=== PATIENT | male | born 1960 | race African-American/Black ===

== ENCOUNTER 2017-02-09 10:18 | Outpatient (CLI) | payer OTHER ==
[2017-02-09 12:10] LABS: #Basophils 0.1 thou/uL (0.0-0.2); #Eosinphils 0.1 thou/uL (0.0-0.7); #Lymphocytes 1.2 thou/uL (1.20-3.40); #Monocytes 0.6 thou/uL (0.11-0.59); %Basophils 1.9 % (0.0-1.0); %Eosinophils 2.3 % (0.0-10.0); %Lymphocytes 30.3 % (21.0-51.0); %Monocytes 14.7 % (0.0-10.0); Hematocrit 43.7 % (42.0-52.0); Mean Platelet Volume 8.3 fL (7.4-10.4); Red Blood Cell (RBC) Count 4.56 mill/uL (4.70-6.10)
--- NOTE | 2017-02-09 12:12 | CT ---
CT OF THE RIGHT INDEX DIGIT: Date: 02/09/17 PROVIDED CLINICAL HISTORY: Proximal phalanx fracture. FINDINGS: Comparison is made with prior radiographs. There is a transversely oriented fracture of the index digit proximal phalanx at the junction of the middle and distal thirds. There is dorsal displacement of the distal fracture fragment by one gretchen x width. There is mild comminution of the fracture fragments. There is minimal periosteal reaction s een about the fracture margins. There is no bridging callus formation evident. Hardware tracks are n oted within the proximal phalanx related to prior pinning. There is increased density within the sof t tissues surrounding the index digit, which is nonspecific but could reflect edema or infection. Gr eater than physiologic tenosynovial fluid cannot be excluded involving the index digit extensor and flexor tendons. A second MCP joint effusion may be present. IMPRESSION: 1. Ununited index digit proximal phalangeal fracture as described above. 2. Soft tissue changes involving the index digit as described above. Please correlate with concerns for infection. POS: MARYCARMEN
== END 2017-02-09 10:19 | disposition home or self-care (01) ==
LOC: CT 10:18
PROVIDERS: ATTEND Orthopaedic Surgery Hand Surgery
DX: Z01.812 Encounter for preprocedural laboratory examination (principal); S62.610 Displaced fracture of proximal phalanx of right index finger
CPT/HCPCS: 85025; 85652

== ENCOUNTER 2017-02-14 10:08 | Inpatient (IN) | payer OTHER ==
[2017-02-14] MEDS ORDERED: Vancomycin HCl 1.5 GM in Sodium Chloride 0.9% 250 ML 300 ML IVPB SCH (11:00)
[2017-02-14] MEDS ORDERED: Fentanyl 100 MCG/2 ML VIAL ONE ×3 (12:08→15:56)
[2017-02-14] MEDS ORDERED: Midazolam HCl 2 mg/2 ml Vial ONE (12:08)
[2017-02-14] MEDS ORDERED: Propofol 200 MG/20 ML VIAL ONE (12:31)
[2017-02-14] MEDS ORDERED: Ondansetron HCl/PF 4 MG/2 ML Vial ONE (12:31)
[2017-02-14] MEDS ORDERED: Lidocaine 1% PF 5 ML VIAL ONE (12:31)
[2017-02-14] MEDS ORDERED: Ketorolac Tromethamine 30 MG/ML VIAL ONE (12:31)
[2017-02-14] MEDS ORDERED: Dexamethasone 20 MG/5 ML VIAL ONE (12:31)
[2017-02-14] MEDS ORDERED: Bacitracin Zinc Ointment 30 gm TUBE ONE (12:48)
[2017-02-14] MEDS ORDERED: Bupivacaine PF 0.5% 30 ML VIAL ONE (12:48)
[2017-02-14] MEDS ORDERED: Tobramycin Sulfate 1.2 GM VIAL ONE (13:17)
[2017-02-14] MEDS ORDERED: Meperidine HCl/PF 25 MG/ML VIAL SLOW IVP PRN (14:24)
[2017-02-14] MEDS ORDERED: Morphine Sulfate 2 MG/ML SYRINGE SLOW IVP PRN (14:24)
[2017-02-14] MEDS ORDERED: HYDROmorphone 2 MG/ML VIAL SLOW IVP PRN (14:24)
[2017-02-14] MEDS ORDERED: Promethazine HCl 25 MG/ML VIAL SLOW IVP PRN (14:24)
[2017-02-14] MEDS ORDERED: Morphine 2 MG/ML SYRINGE SLOW IVP PRN (14:56)
[2017-02-14] MEDS ORDERED: Ondansetron ODT 4 MG TAB PO PRN (14:56)
[2017-02-14] MEDS ORDERED: traMADol HCl 50 MG TAB PO PRN (14:56)
[2017-02-14] MEDS ORDERED: Acetaminophen 325 MG TAB PO PRN (14:56)
--- NOTE | 2017-02-14 15:47 | RAD ---
THREE VIEWS FROM FLUOROSCOPIC IMAGES OF THE RIGHT INDEX FINGER 02/14/17 FLUOROSCOPIC TIME: 26.7 seconds TOTAL EXPOSURE: 0.47 mGy. FINDINGS: Since comparison exam dated 12/04/06, there has been removal of the smooth Silvia wires transfixin g an index finger proximal phalangeal fracture. The fracture lucency persists. There is increased o steolysis seen involving the inner cortical margin of the mid proximal aspect of the index finger p roximal phalanx as well as the central medullary cavity. Subsequent images demonstrate curettage of the proximal phalanx and placement of antibiotic beads within the fracture site and curettage site o f the index finger proximal phalanx. There is some diastasis of the transverse fracture of the index finger proximal phalangeal neck. IMPRESSION: Interval bone curettage of the right index finger proximal phalangeal fracture. POS: MARYCARMEN
[2017-02-14 17:27] VITALS: BMI 28.2
[2017-02-14] MEDS ORDERED: Heparin 1,000 UNITS/ML VIAL ONE (17:29)
[2017-02-14] MEDS: Ketorolac Tromethamine 30 MG/ML VIAL IVP SCH ×2 (17:58→23:37)
[2017-02-14] MEDS: Dextrose 5 %-0.45 % NaCl 1,000 ML IV SCH (18:07)
[2017-02-14] MEDS: Vancomycin HCl 1 GM in Premix Bag 1 BAG IVPB SCH (20:11)
[2017-02-14] MEDS: Famotidine 20 MG TAB PO SCH (20:11)
[2017-02-15] MEDS: Ketorolac Tromethamine 30 MG/ML VIAL IVP SCH ×3 (05:27→17:06)
--- NOTE | 2017-02-15 06:42 | OP ---
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 PROCEDURE PERFORMED: 1. Debridement of bone intramedullary. 2. Bone cortex excision for osteomyelitis. 3. Tenolysis extensor tendon, proximal phalanx. 4. Application of antibiotic beads, intramedullary. 5. Open treatment of nonunion, proximal phalanx. INDICATIONS: The patient is now approximately 4 weeks after open treatment for grade 2 open fractur e secondary to industrial accident with Workman's Compensation status. He initially had K-wires han sherry, but they were removed or dislodged at home in association with the patient's activity and he co mplained of drainage from 1 pin site when radiographs revealed possible lysis, it was clearly need t o have this debrided, treated like a real infection with osteomyelitis with a filling of space with antibiotic beads and removal of all necrotic tissue. ESTIMATED BLOOD LOSS: 10 mL TOURNIQUET TIME: 67 minutes. DESCRIPTION OF PROCEDURE: After successful general LMA technique, the limb was prepped and draped. Timeout was done appropriately. A big C-arm was brought into the field confirmed with the position and the overlap without healing. The limb was exsanguinated and tourniquet inflated to 250 mmHg pressure and for the distal one half of the incision, his previous incision was removed, which had transverse limb just distal to the fra cture, but proximally, it was a dorsally-based procedure. This was carried through the skin, subcutaneous tissue and used the entire incision which went 1 cm distal to the mid proximal phalangeal joint . There was some mucopurulence in the area where t he pin had penetrated the ulnar, distal, proximal phalanx cortex. For this reason, we first sent a specimen of the subcutaneous tissue looked mucopurulent, extensor mechanism did the same thing for t he thickened periosteum that was adherent to the extensor tendon while we performed formal tenolysis and then we explored the fracture by removing minimal callus and with mild gross motion of the fra cture seen, debrided this along with some of the bone cortex in the intramedullary canal with curett es, a , and a [place] blade and then we were able to visualize the minimal necrosis left in intr amedullary canal. The subcutaneous tissue support was not damaged or involved in this process at al l. We then realized that the patient had osteomyelitis. Therefore, a specimen of the following was sen t: A. Subcutaneous adhesion tissue to the tendon. B. Periosteum. C. Bone for both culture and specimen from the wound. The patient then had the bones unreduced and at that point, received almost 30% displacement dorsall y. We cleaned the fracture site and debrided it, removing all excrement or possible infectious tiss ue. We did the same thing with the other associated areas and once this was done, we could clearly i rrigate the canal which was now clean of all marrow and bone fragments. This was done with 3 liters Pulsavac with antibiotics inside until the canal was clean. We then brought vancomycin powder lucretia g with cement particles mixed, and when it was a consistency, formed it to fill the intramedullary c anal. The patient then had the irrigation completed, antibiotic beads spacer fit well, with several spacers placed in the proximal radial part of the cortex where the pin injury took place and this g ave excellent construct. Tourniquet was deflated. Hemostasis obtained after the finger became pink . We placed some small beads on top of the area and then from there we closed extensor mechanism wi th a loosely applied Prolene, but the antibiotic spacer was on both sides of the fracture in the int ramedullary canal seen on radiographs. Then, we closed the skin except for the area where the mucop urulence was seen, which was a 1 cm area using the loosely approximated 5-0 nylon. Bulky dressing w ith splint was applied. He left the operating room without complication.
[2017-02-15] MEDS: Dextrose 5 %-0.45 % NaCl 1,000 ML IV SCH ×2 (07:21→23:34)
[2017-02-15] MEDS: Vancomycin HCl 1 GM in Premix Bag 1 BAG IVPB SCH ×2 (07:56→20:05)
[2017-02-15] MEDS: Famotidine 20 MG TAB PO SCH ×2 (11:00→20:05)
[2017-02-15] MEDS: HYDROcodone/Acetaminophen 7.5/325 mg Tablet PO PRN (23:31)
[2017-02-16 06:27] LABS: #Basophils 0.1 thou/uL (0.0-0.2); #Eosinphils 0.1 thou/uL (0.0-0.7); #Monocytes 0.6 thou/uL (0.11-0.59); #Neutrophils 2.7 thou/uL (1.40-6.50); %Monocytes 11.3 % (0.0-10.0); Hematocrit 39.8 % (42.0-52.0); Mean Platelet Volume 8.2 fL (7.4-10.4); Red Blood Cell (RBC) Count 4.22 mill/uL (4.70-6.10); White Blood Cell (WBC) Count 5.5 thou/uL (4.8-10.8)
[2017-02-16 06:29] LABS: Prothrombin Time 14.7 SEC (12.0-14.7)
[2017-02-16] MEDS: Famotidine 20 MG TAB PO SCH ×2 (08:09→20:47)
[2017-02-16] MEDS: Vancomycin HCl 1 GM in Premix Bag 1 BAG IVPB SCH ×2 (08:09→20:47)
[2017-02-16] MEDS: Dextrose 5 %-0.45 % NaCl 1,000 ML IV SCH (14:31)
--- NOTE | 2017-02-16 15:38 | SPC ---
PICC PLACEMENT ULTRASOUND GUIDED VENOUS ACCESS: (Peripherally Inserted Central Catheter) HISTORY: 56-year-old male with osteomyelitis of the right hand requiring long-term IV antibiotics. TECHNIQUE: Catheter caliber: 5 [place] Catheter trim length: 44 cm Catheter lumen number: Single Catheter tip location: Superior vena cava/right atrial junction. Vein accessed: Left basilic Signed, informed consent was obtained. A tourniquet was applied at the proximal aspect of the arm. The arm was prepared and draped in the usual sterile fashion. A 25 gauge needle was used to apply buffered lidocaine superficially. The vein was punctured with a 21 gauge micropuncture needle under ultrasound guidance. A 0.018 inch guide wire was advanced through the micropuncture needle and int o the vein. Under fluoroscopic guidance, the guide wire was advanced to the right atrium. The PICC (peripherally inserted central catheter) was flushed and trimmed to the appropriate length. The sk in puncture hole was widened with a blade. The micropuncture needle was exchanged over the guide wi re for a 5 [place]ian peel-away dilator sheath. The dilator was exchanged over the guide wire for the P ICC, which was then further advanced under fluoroscopy. The sheath and guide wire were removed. Th e PICC was flushed again and secured in place at the arm. The patient tolerated the procedure well. There was no complication. IMPRESSION: Successful placement of PICC (peripherally inserted central catheter) sharlene POS: MARYCARMEN
[2017-02-16] MEDS: HYDROcodone/Acetaminophen 7.5/325 mg Tablet PO PRN ×2 (17:53→22:28)
[2017-02-16 19:41] LABS: Vancomycin, Trough 9.5 ug/mL
--- NOTE | 2017-02-16 22:23 | CON ---
DATE OF CONSULTATION: 02/16/2017 REASON FOR CONSULTATION: Osteomyelitis, right hand. HISTORY OF PRESENT ILLNESS: A 66-year-old who has no past medical history and sustained an amputation of finger right hand at work and first surgical intervention was 12/01 and consisted of debridement of an open fracture of the proximal phalanx of index finger, debridement of open joint percutaneous fixation, proximal phalanx fracture and volar plate repair, ulnar digital artery repair and ulnar digital nerve repair. The second procedure was in the following day with debridement of wound. Third procedure was a skin graft from the antecubital fossa and more debridement and now he has been readmitted with an infection in the digit. The patient underwent debridement of intramedullary bone with bone cortex excision, tenolysis extensor tendon, and application of the antibiotic beads and cultures are pending at this time. Patient other than moderate pain denies headaches, visual symptoms, sore throat, odynophagia, dysphagia, no cough or sputum production or chest pain, no abdominal pain or diarrhea, no genitourinary symptoms, no other osteomuscular issues. PAST MEDICAL HISTORY: Negative. SOCIAL HISTORY: Former smoker. 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 Two children. FAMILY HISTORY: Noncontributory. PAST SURGICAL HISTORY: No prior surgical history other than the above procedures. ALLERGIES: None. CURRENT MEDICATIONS: Vancomycin and p.r.n. meds. PHYSICAL EXAMINATION: VITAL SIGNS: T-max 98.4, blood pressure 130/79, pulse 75, respirations 18 to 20 , O2 sat 96% to 98%. GENERAL: Appears in no distress. HEENT: Noncontributory. NECK: Supple, no jugular venous distention. LUNGS: Clear. HEART: S1, S2, regular rate. ABDOMEN: Soft, not distended, vascular supply to right hand appears intact. LOWER EXTREMITIES: Normal. NEUROLOGIC: Nonfocal. LABORATORY DATA: White cell count 5.5, hemoglobin 12.8, platelets 194. INR 1.1. Previous chemistries, creatinine 0.85, globulin 4.0. ASSESSMENT: Finger fracture status post extensive procedures with postoperative infection of fracture site. The patient has a PICC line inserted and we still have pending microbiology samples. The plan is for broad spectrum coverage and may want to be released tomorrow which will be difficult in view of his worker's comp insurance which usually impose a delay in discharge planning due to their procedures for approval of treatments, also ideally one would like to have a better definition of microbiology before discharge planning. MTDD
[2017-02-17] MEDS: Dextrose 5 %-0.45 % NaCl 1,000 ML IV SCH (06:43)
[2017-02-17 07:33] VITALS: BP 144/86; TEMP 98
[2017-02-17] MEDS: Vancomycin HCl 1 GM in Premix Bag 1 BAG IVPB SCH (08:22)
[2017-02-17] MEDS: Famotidine 20 MG TAB PO SCH (08:22)
--- NOTE | 2017-02-17 09:45 | DIS ---
DATE OF ADMISSION: 02/14/2017 DATE OF DISCHARGE: 02/17/2017 ADMISSION DIAGNOSES: Possible osteomyelitis with early nonunion at right index finger, proximal pha lanx previous grade III open fracture. POSTOPERATIVE DIAGNOSES: Possible osteomyelitis with early nonunion at right index finger, proximal phalanx previous grade III open fracture. 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 CONSULTATION: 1. Discharge plan. 2. Infectious Disease. 3. Laboratory/pathology team. HOSPITAL COURSE: Patient was admitted after complaints of mucopurulent drainage from his previous p in tract sites, how he self removed his pins, the fact that all radiographs did not appear to , so we did obtain a scan which was consistent with nonunion. Because of nonunion, pain, possible dr akins, felt that he might have an infection either in his previous pin tracks or in the fracture li ne itself. He therefore on 02/14/2017 underwent a tenotomy to release extensor tendon adhesions, th en using that same approach, was able to visualize the fracture with a course completely not healed with no early callus, but we saw along one of his pin track sites, expansion of the pin track to a p oint 3-4 mm wide, some mucopurulent at both hands and therefore he underwent bone biopsy debridement , bone cortex excision, intramedullary curettage, debridement of soft tissue, and thickened possible infected periosteum and all was sent to the lab. While the patient tolerated the procedure well, his culture showed few antibiotics, but at the time of discharge did not have final pathology, but since had gross mucopurulent and a nonunion that look ed to be infected, he had antibiotic spacer in the intramedullary canal and this was used to s tabilize the fracture as well as cover the pin track sites. He then had a dressing applied and was evaluated for possible infection where the pathology report did not show osteomyelitis, but did show reactive changes in the bone. Also with preliminary cultures by the time of discharge was showing something growing in one medium but otherwise did not show any true organism. On postop day #2, he was evaluated by Dr. Hutchinson fairly need IV antibiotics, PICC line was placed, he is prepared for discharge. DISCHARGE DIAGNOSES: 1. Nonunion of fracture, proximal phalanx. 2. Possible infection with osteomyelitis and fracture line secondary to pin tract/pin site infectio n. 3. Normal white blood cell count with sedimentation rate of 1 at the time of hospitalization with a ll tests taken. DISCHARGE PLAN: The patient has a PICC line and was given IV antibiotics per Dr. Hutchinson both in type , duration and concentration. Next, he will undergo clearly home care and return to the clinic 1 we ek after discharge for evaluation by Dr. Salas for dressing changes which we will do weekly, and may consider at 4 to [address] at the earliest, definitive procedure on his finger, whic h would include actual plating, and bone graft with structural support. DISCHARGE MEDICATIONS: [place] 7.5/325 one tab every 12 hours for pain with total of 20 will be given . He will also be given Toradol 10 mg tablets for 5 days with 1 every 8 hours. His diet would be r egular. His IV antibiotics will be per Dr. Hutchinson and his dressing was appropriately applied at time of discharge. His follow up will be Dr. Salas on the through the 02/2017.
[2017-02-17] MEDS: HYDROcodone/Acetaminophen 7.5/325 mg Tablet PO PRN (10:25)
== END 2017-02-17 17:24 | disposition home health service (06) | DRG 513 ==
LOC: SDC 10:08 → T4-B 14:56
PROVIDERS: ADMIT Orthopaedic Surgery Hand Surgery; ATTEND Orthopaedic Surgery Hand Surgery
PROC: 0PDT0ZZ Extraction of Right Finger Phalanx, Open Approach (ICD-10-PCS; principal; 2017-02-14)
PROC: 0XH Anatomical Regions, Upper Extremities, Insertion (ICD-10-PCS; 2017-02-14)
PROC: 0PBT0ZZ Excision of Right Finger Phalanx, Open Approach (ICD-10-PCS; 2017-02-14)
PROC: 0LN70ZZ Release Right Hand Tendon, Open Approach (ICD-10-PCS; 2017-02-14)
PROC: 02H633Z Insertion of Infusion Device into Right Atrium, Percutaneous Approach (ICD-10-PCS; 2017-02-16)
PROC: B244ZZZ Ultrasonography of Right Heart (ICD-10-PCS; 2017-02-16)
DX: T84.69XA Infection and inflammatory reaction due to internal fixation device of other site, initial encounter (principal); S62.610 Displaced fracture of proximal phalanx of right index finger; I96 Gangrene, not elsewhere classified; M86.8X4 Other osteomyelitis, hand; T84.220A Displacement of internal fixation device of bones of hand and fingers, initial encounter; M67.843 Other specified disorders of tendon, right hand; X58.XXXD Exposure to other specified factors, subsequent encounter; Y99.0 Civilian activity done for income or pay; Z87.891 Personal history of nicotine dependence
CPT/HCPCS: 36415; 36569; 76001; 80202; 85025; 85610; 85652; 87070; 87077; 87186; 87205; 88307; C1713; C1751; G8987-GO-CI; G8988-GO-CI; G8989-GO-CI; J1100; J1644; J1885; J2001; J2250; J2270; J2405; J2704; J3010; J3260; J3370; J7050; S0020

== ENCOUNTER 2017-03-13 11:33 | Outpatient (CLI) | payer OTHER ==
[2017-03-13 12:33] LABS: Hematocrit 41.1 % (42.0-52.0); Mean Platelet Volume 7.9 fL (7.4-10.4); Red Blood Cell (RBC) Count 4.37 mill/uL (4.70-6.10); White Blood Cell (WBC) Count 4.6 thou/uL (4.8-10.8)
== END 2017-03-13 11:34 | disposition home or self-care (01) ==
LOC: LABBT 11:33
PROVIDERS: ATTEND Orthopaedic Surgery Hand Surgery
DX: Z01.812 Encounter for preprocedural laboratory examination (principal); M86.18 Other acute osteomyelitis, other site
CPT/HCPCS: 85027; 85652

== ENCOUNTER 2017-03-21 06:13 | Day surgery (SDC) | payer OTHER ==
[2017-03-13 11:40] VITALS: BMI 27.2
[2017-03-21] MEDS ORDERED: Vancomycin HCl 1.5 GM in Sodium Chloride 0.9% 250 ML 300 ML IVPB SCH (06:30)
[2017-03-21] MEDS ORDERED: Bacitracin Zinc Ointment 30 gm TUBE ONE ×2 (08:53)
[2017-03-21] MEDS ORDERED: methylPREDNISolone Acetate 40 mg/ml Vial ONE (08:53)
[2017-03-21] MEDS ORDERED: Sodium Chloride 0.9% 10 ML ONE (08:53)
[2017-03-21] MEDS ORDERED: Bupivacaine PF 0.5% 30 ML VIAL ONE (08:53)
[2017-03-21] MEDS ORDERED: Fentanyl 100 MCG/2 ML VIAL ONE ×4 (08:57→13:14)
[2017-03-21] MEDS ORDERED: Midazolam HCl 2 mg/2 ml Vial ONE (08:57)
[2017-03-21] MEDS ORDERED: Ketorolac Tromethamine 30 MG/ML VIAL ONE (12:51)
[2017-03-21] MEDS ORDERED: Morphine 4 MG/ML VIAL ONE (13:42)
[2017-03-21] MEDS ORDERED: Propofol 200 MG/20 ML VIAL ONE (14:15)
[2017-03-21] MEDS ORDERED: Lidocaine 1% PF 5 ML VIAL ONE (14:15)
[2017-03-21] MEDS ORDERED: Ondansetron HCl/PF 4 MG/2 ML Vial ONE (14:15)
[2017-03-21] MEDS ORDERED: HYDROcodone/Acetaminophen 5/325 mg Tablet ONE (14:21)
--- NOTE | 2017-03-21 14:27 | OP ---
DATE OF PROCEDURE: 03/21/2017 PREOPERATIVE DIAGNOSES: 1. Osteomyelitis undergoing IV antibiotics at this time 4 weeks since last debridement. No gross in fection found. Preop right index finger proximal phalanx. 2. 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 3. Extensor tendon adhesion with joint contracture. POSTOPERATIVE DIAGNOSES: 1. Osteomyelitis undergoing IV antibiotics at this time 4 weeks since last debridement. No gross in fection found. Preop right index finger proximal phalanx. 2. 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 3. Extensor tendon adhesion with joint contracture. 4. Findings of no gross infection in the medullary, subcutaneous, deep tissue to include deep tissue sampling around the fracture site to include the medullary contents that showed a negative Gram stai n for bacteria intraoperative as a fresh stat specimen. PROCEDURE PERFORMED: 1. Bone debridement at the fracture site which would be listed as osteectomy, osteomyelitis site. 2. Extensor tenolysis, this is all at the right index finger. 3. Extensor tenosynovectomy. 4. Extensor tendon repair, zone 3 where there was a partial tendon laceration with some noncontracti le tissue. 4. Removal of antibiotic beads. 5. Application of antibiotic beads at this time, this is dissolvable where the previous beads were p ermanent. 6. Volar capsulotomy, through a single approach mid lateral ulnar aspect. 7. Open reduction internal fixation of proximal phalanx fracture. 8. Nonunion repair using rotation osteotomy. 9. Minor bone grafting using approximately 10 mL cancellous chips, some crushed, some kept in solid cube form. SURGEON: Manpreet Salas M.D. ANESTHESIA: General LMA technique. 20 mL 0.5% Marcaine block, 10 prior to procedure and 10 at the e nd. INDICATIONS: The patient is here for staged wound management and fracture management with proven ost eomyelitis after previous debridements x4 and antibiotic beads including antibiotic bead spacer place d at the fracture site across the fracture site into the medullary canal on both sides of the fractur e site. ESTIMATED BLOOD LOSS: Blood loss 100 mL. TOURNIQUET TIME: 114 minutes. DESCRIPTION OF PROCEDURE: After successful general anesthesia, the patient was prepped and draped. A time out was done appropriately. We then took radiographs to confirm where the fracture gap was. The patient had a fixed passive loss of extension of -60 degrees and we started the procedure with hi m asleep. We then used the same incision where we removed the hypertrophic scar at the same time, extending it 5 mm distal to the proximal phalangeal joint and to the level of the metacarpophalangeal joint. Ther e was a very thick hypertrophic subcutaneous scar layer over the extensor mechanism and this was the form part that was removed via tenosynovectomy as well as the part that was on the tendon. We then d id a tenolysis releasing the tendon with a [place] blade from the underlying scarred proximal phalanx around the fracture site which was distal one-third near the neck shaft junction. Once the tenolysis was done, the extensor tendon was completely freed to include proximal distal fracture and we were a ble to free it up over the joint capsule well, but here we saw he had a 4 mm area where there was an area of central necrosis around the tendon, 1 cm proximal to the central slip insertion. This was de brided. We would later repair it. Once the tendon was free, we then weaved from the midlateral approach and ulnar aspect which was wher e the tendon was visualized and with the fracture and this has begun his infection. We then visualiz ed the bone, did an ostectomy of circumference around the bone fracture site proximal and distal, dep edaling with a 0.35 and 0.45 K-wire to create bleeding surface of contact, and after we had done this , the gap now was in the sagittal plane at the cortex almost 2.5 and a 3 mm and at the fracture site, 1 mm. For this reason, we knew a bone graft would be necessary. We began to soak normal saline and blood soaked cancellous chips. We then performed a volar capsule release in the interval between the collateral ligament and the int rinsics at the level of PIP joint, carried this down to joint capsule, released the capsule, then siri ed the capsule up from the underlying bone, but we did not perform a formal flexor tenosynovectomy or did not open the palmar side. After we did this maneuver, we then were able to remove the antibiotic beads that were permanent completely from the shaft, and both intramedu llary fracture site approach and proximally from a hole proximal to the fracture on the dorsal radial side. Then, we irrigated that with 2 liters normal saline and Pulsavac pressure. We prepared to co rrect the patient's functional internal rotation malrotation and this was done with external rotation malrotation, which made it override greatly about 30 degrees over the long finger. Now the bone had been debrided, completed. The specimen was sent to the lab, came back as only white blood cells, no bacteria, we agreed to proceed. Once the final liter of irrigation was done w ith bacitracin inside, we then took two cross K-wires stabilizing the fracture site in the appropriat e rotation not over the length of the long finger then we began with a 2-0 1.5 plate with 2-0 screws and plate seemed to be too big to place under the tendon that already had adhesions. We then began d rill, measure tap from the distal 3 holes, reduce the fracture and held it in appropriate rotation an d clamped it with a bone clamp. Then, placed a bone clamp in his , we were able to place 3 scre ws distal to the fracture. We had excellent cortical purchase, 4 screws proximal, all with good ed ical purchase and the rotation was excellent. The fracture gap and now under the plate was only one- half mm and at the palmar aspect with 3 mm so we felt we needed trying to shape bone graft, but did not have to have cortical because of the overall gap and we filled this in with normal saline and blo od soaked cancellous bone chips. On the distal hole in the bone proximal to the bone we placed antibiotic beads dissolvable with vanco mycin powder inside. Once it became hard 35 minutes into the procedure. The patient had tourniquet deflated at this time, we then took final radiographs which showed excellent position of the plates, final screws, length and position as well as the tendon. The antibiotic beads were appropriately in the shaft. We placed some distal to the bone graft and ulnar to it. The tourniquet had been released. Excellent hemostasis was seen had good capillary refill and pink d igit. Now with the plate on we could achieve a passive range of motion of -15 at the PIP through 130 at the PIP joint with no loss of MP motion. The extensor mechanism was intact now except for the de fect described above and so after being debrided we were then able to perform the appropriate repair which was 6 mm long using 2 figure of eight interrupted fashion Prolene 3-4. Then, the hemostasis ob tained subcutaneously, final radiographs were taken showing the copious amounts of bone graft as well as the antibiotic beads having . The incision was then closed after the [id number] Prolen e repair in the central portion of the central slip, but with excellent tension using 4-0 nylon. Bul ky dressing was applied just after given the last Marcaine injection and the patient left the operati ng room without evidence of anesthetic or operative complication. Bulky splint dressing and splint w as applied at the PIP joint at -15 extension.
--- NOTE | 2017-03-22 07:55 | RAD ---
RIGHT INDEX FINGER: Date: 03/21/17 Five fluoroscopic views presented. INDICATION: Intraoperative imaging during internal fixation procedure. IMPRESSION: These films demonstrate fracture of the proximal phalanx of the index finger. A dorsal plate with scr ews is placed transfixing this fracture as demonstrated on these images. POS: MARYCARMEN
== END 2017-03-21 16:25 | disposition home or self-care (01) ==
LOC: SDC 06:13
PROVIDERS: ATTEND Orthopaedic Surgery Hand Surgery
PROC: 0HBFXZZ Excision of Right Hand Skin, External Approach (ICD-10-PCS; principal; 2017-03-21)
PROC: 0LN70ZZ Release Right Hand Tendon, Open Approach (ICD-10-PCS; principal; 2017-03-21)
PROC: 0PST04Z Reposition Right Finger Phalanx with Internal Fixation Device, Open Approach (ICD-10-PCS; principal; 2017-03-21)
PROC: 3E0V329 Introduction of Other Anti-infective into Bones, Percutaneous Approach (ICD-10-PCS; principal; 2017-03-21)
PROC: 0LT70ZZ Resection of Right Hand Tendon, Open Approach (ICD-10-PCS; principal; 2017-03-21)
PROC: 0RNW0ZZ Release Right Finger Phalangeal Joint, Open Approach (ICD-10-PCS; principal; 2017-03-21)
PROC: 0PBT0ZZ Excision of Right Finger Phalanx, Open Approach (ICD-10-PCS; principal; 2017-03-21)
DX: M86.141 Other acute osteomyelitis, right hand (principal); S62.610D Displaced fracture of proximal phalanx of right index finger, subsequent encounter for fracture with routine healing; M24.50 Contracture, unspecified joint; F17.290 Nicotine dependence, other tobacco product, uncomplicated; Z79.2 Long term (current) use of antibiotics; Z79.899 Other long term (current) drug therapy; Z98.890 Other specified postprocedural states
CPT/HCPCS: 76001; 87070; 87205; 96374; A4216; C1713; J1030; J1642; J1885; J2001; J2250; J2270; J2405; J2704; J3010; J3370; J3490; J7050; S0020